=== PATIENT | male | born 1980 | race African-American/Black ===

== ENCOUNTER 2017-02-23 19:34 | Emergency (ER) | payer MEDICAID ==
[~2017-02-23] VITALS: Ht 182.9 cm; Wt 68.0 kg
[2017-02-23] MEDS ORDERED: NKM (19:45)
[2017-02-23 19:50] VITALS: BP 109/73
[2017-02-23] MEDS ORDERED: Ketorolac 60mg Inj IM ONE (20:00)
--- NOTE | 2017-02-23 20:06 | Emergency Room Report ---
History of Present Illness General Chief Complaint: Lower Back Pain or Injury Source: Patient Present Illness HPI 36-year-old male presents emergency department complaining of 7/10 in severity localized low back pain on the right side in addition to left-sided upper back pain for almost 2 weeks status post kick boxing. Patient states his pain does not radiate, he denies midline spinal pain. Patient states he has taken Motrin on 2 separate occasions but he continues to have pain. Patient denies appreciable trauma or fall patient states pain is exacerbated upon twisting of the trunk. Denies nausea, vomiting, fevers, chills, recent spinal procedures, history of neoplastic disease, or changes in weight. Denies dysuria or hematuria. Denies numbness tingling or loss of sensation or gross motor movements of the extremities, incontinence of bowel or bladder. Denies CP, Palpitations, LOC, AMS, dizziness, Changes in Vision, Sensation, paresthesias, or a sudden severe headache. Allergies: Coded Allergies: No Known Allergies (Unverified , 02/23/17) Patient History Past Medical History: see triage record Past Surgical History: none Pertinent Family History: none Immunizations: UTD Reviewed Nursing Documentation: PMH: Agreed, PSxH: Agreed Nursing Documentation-PMH Past Medical History: No Stated History Review of Systems All Other Systems: negative except mentioned in HPI Physical Exam Vital Signs Date Time Temp Pulse Resp B/P Pulse Ox O2 Delivery O2 Flow Rate FiO2 02/23/17 19:41 98.2 59 16 109/73 98 Room Air Sp02 EP Interpretation: reviewed, normal General Appearance: no apparent distress, alert, GCS 15, non-toxic Head: normocephalic, atraumatic Eyes: bilateral eye PERRL, bilateral eye normal inspection ENT: hearing grossly normal, normal pharynx, no angioedema, normal voice Neck: full range of motion, supple/symm/no masses Respiratory: lungs clear, normal breath sounds, speaking full sentences Cardiovascular #1: regular rate, rhythm, no edema Genitourinary: no CVA tenderness Musculoskeletal: back normal, gait/station normal, normal range of motion, tender - right lumbar paraspinal TTP in the lumbar region, and left paraspinal thoracic ttp, no midline TTP, no obvious deformities, no erythema Neurologic: alert, oriented x3, responsive, motor strength/tone normal, sensory intact, speech normal Psychiatric: judgement/insight normal, memory normal, mood/affect normal Skin: normal color, no rash, warm/dry, well hydrated Medical Decision Making PA Attestation Dr. Jarrell is my supervising Physician whom patient management has been discussed with. Diagnostic Impression: Primary Impression: Muscle strain Additional Impression: Back pain Qualified Codes: M54.5 - Low back pain ER Course 36-year-old male presents emergency department complaining of 7/10 in severity localized low back pain on the right side in addition to left-sided upper back pain for almost 2 weeks status post kick boxing. Patient states his pain does not radiate, he denies midline spinal pain. Patient states he has taken Motrin on 2 separate occasions but he continues to have pain. Patient denies appreciable trauma or fall patient states pain is exacerbated upon twisting of the trunk. Denies nausea, vomiting, fevers, chills, recent spinal procedures, history of neoplastic disease, or changes in weight. Denies dysuria or hematuria. Denies numbness tingling or loss of sensation or gross motor movements of the extremities, incontinence of bowel or bladder. Denies CP, Palpitations, LOC, AMS, dizziness, Changes in Vision, Sensation, paresthesias, or a sudden severe headache. Ddx considered but are not limited to Fracture, dislocation, contusion, renal calculi, epidural abscess, Sprain/Strain/Spasm Vital signs: are WNL, pt. is afebrile H&PE are most consistent with muscle strain/ spasm of the back. - no obvious deformity or bony tenderness. Pain is reproduced upon palpation of the paraspinal musculature, renal stone is not suspected at this time. No evidence of infection or cauda equina. ORDERS: none required at this time. x-rays -Not indicated as patient does not have any bony tenderness on physical exam. ED INTERVENTIONS: -350mg Soma PO. - Toradol IM I do not suspect an emergent condition at this time. with current presentation pt. is stable for close outpatient follow up. DISCHARGE: At this time pt. is stable for d/c to home. Will provide printed patient care instructions, and any necessary prescriptions. Care plan and follow up instructions have been discussed with the patient prior to discharge. Last Vital Signs Date Time Temp Pulse Resp B/P Pulse Ox O2 Delivery O2 Flow Rate FiO2 02/23/17 19:41 98.2 59 16 109/73 98 Room Air Disposition: HOME, SELF-CARE Condition: Stable Scripts Ibuprofen* (MOTRIN*) 600 Mg Tablet 600 MG ORAL THREE TIMES A DAY, #30 TAB 0 Refills Prov: Elda Dumont 02/23/17 Cyclobenzaprine Hcl* (FLEXERIL*) 10 Mg Tablet 10 MG ORAL THREE TIMES A DAY for 7 Days, #21 TAB Prov: Elda Dumont 02/23/17 Patient Instructions: Lumbosacral Strain, Back Pain, Adult Additional Instructions: Take medications as directed. Follow up with PCP in 3-5 days Return sooner to ED if new symptoms occur, or current symptoms become worse. Do not drink alcohol, drive, or operate heavy machinery while taking muscle relaxers as this may cause drowsiness. - Please note that this Emergency Department Report was dictated using [employer] teacher technology software, occasionally this can lead to erroneous entry secondary to interpretation by the dictation equipment. Elda Dumont February 23, 2017 20:06
[2017-02-23] MEDS ORDERED: IBUPROFEN600 MG ORAL (20:07)
[2017-02-23] MEDS ORDERED: CYCLOBENZAPRINE10 MG ORAL (20:07)
[2017-02-23 20:15] VITALS: BP 109/73
== END 2017-02-23 20:15 | disposition home or self-care (01) ==
LOC: EMR 20:05
DX: M54.5 Low back pain (principal); T14.8 Other injury of unspecified body region; X58.XXXA Exposure to other specified factors, initial encounter; Y93.71 Activity, boxing; Y92.9 Unspecified place or not applicable
CPT/HCPCS: 96372; 99284

== ENCOUNTER 2020-02-20 16:19 | Emergency (ER) | payer MEDICAID ==
[~2020-02-20] VITALS: Ht 182.9 cm; Wt 68.0 kg
[~2020-02-20 16:19] MED LIST: CYCLOBENZAPRINE10 MG ORAL; IBUPROFEN600 MG ORAL; NKM
[2020-02-20 16:37] VITALS: BP 126/87
[2020-02-20] MEDS ORDERED: Ketorolac 30mg Inj IM ONE (16:45)
--- NOTE | 2020-02-20 17:29 | Emergency Room Report ---
History of Present Illness General Chief Complaint: Lower Extremity Injury Source: Patient Present Illness HPI 39-year-old male with no symptom past medical history here complaining of right knee pain after twisting injury that occurred while playing basketball yesterday. Obvious deformity of right patella noted. Patient rates the pain 10 out of 10 without radiation. Denies tingling numbness. Has limited flexion and extension. Neurovascularly intact. Denies all other injuries. Has taken Advil for pain with minimal relief. Denies any chest pain, shortness of breath , headache and dizziness. 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 Patient History Past Medical History: see triage record Past Surgical History: none Pertinent Family History: none Immunizations: UTD Reviewed Nursing Documentation: PMH: Agreed; PSxH: Agreed Nursing Documentation-PMH Past Medical History: No Stated History Review of Systems All Other Systems: negative except mentioned in HPI Physical Exam Vital Signs Date Time Temp Pulse Resp B/P (MAP) Pulse Ox O2 Delivery O2 Flow Rate FiO2 02/20/20 16:37 98.6 98 15 112/68 (83) 98 Room Air Sp02 EP Interpretation: reviewed, normal General Appearance: no apparent distress, alert, GCS 15, non-toxic Head: normocephalic, atraumatic Eyes: bilateral eye normal inspection, bilateral eye PERRL ENT: hearing grossly normal, normal pharynx, no angioedema, normal voice Neck: full range of motion, supple/symm/no masses Respiratory: chest non-tender, lungs clear, normal breath sounds, no rhonchi, no wheezing, speaking full sentences Cardiovascular #1: regular rate, rhythm, no edema, no murmur Cardiovascular #2: 2+ dorsalis pedis (R), 2+ dorsalis pedis (L) Gastrointestinal: normal bowel sounds, non tender, soft, non-distended, no guarding, no rebound Genitourinary: no CVA tenderness Musculoskeletal: back normal, no calf tenderness, pelvis stable, tender - right patella, other - deformity of right patella Neurologic: alert, motor strength/tone normal, oriented x3, sensory intact, responsive, speech normal Psychiatric: judgement/insight normal, memory normal, mood/affect normal, no suicidal/homicidal ideation Skin: no rash Lymphatic: no adenopathy Procedures Splinting Splinting : Consent: Verbal Location: right knee Pre-Made Type: knee immobilizer Pre-Proc Neuro Vasc Exam: normal Post-Proc Neuro Vasc Exam: normal Patient Tolerated: Well Complications: None Medical Decision Making PA Attestation Diagnosis and treatment plans were reviewed and discussed with my supervising physician Dr. Joe Diagnostic Impression: Primary Impression: Patellar fracture ER Course 39-year-old male with no symptom past medical history here complaining of right knee pain after twisting injury that occurred while playing basketball yesterday. Obvious deformity of right patella noted. Patient rates the pain 10 out of 10 without radiation. Denies tingling numbness. Has limited flexion and extension. Neurovascularly intact. Denies all other injuries. Has taken Advil for pain with minimal relief. Denies any chest pain, shortness of breath , headache and dizziness. Ddx considered but are not limited to: Knee sprain, strain, fracture, contusion , meniscus tear injury Vital signs: are WNL, pt. is afebrile H&PE are most consistent with: Right patella fracture ORDERS: Knee x-ray, right lower extremity venous duplex ultrasound, Tylenol 3, ibuprofen ER intervention: Toradol, knee immobilizer was applied and crutches were provided DISCHARGE: At this time pt. is stable for d/c to home. Will provide printed patient care instructions, and any necessary prescriptions. Care plan and follow up instructions have been discussed with the patient prior to discharge. 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 Interpretation: other - patellar fx Impression: Other - patellar fx Electronically Signed by: Topher White PA-C CT/MRI/US Diagnostic Results CT/MRI/US Diagnostic Results : Imaging Test Ordered: right LE venous duplex US Impression no DVT Last Vital Signs Date Time Temp Pulse Resp B/P (MAP) Pulse Ox O2 Delivery O2 Flow Rate FiO2 02/20/20 16:37 89 19 Room Air 02/20/20 16:37 98.0 126/87 100 Disposition: HOME, SELF-CARE Condition: Stable Scripts Ibuprofen (Ibu) 800 Mg Tablet 800 MG PO TID, #30 TAB Prov: Topher Obando 02/20/20 Acetaminophen With Codeine (T#3) (TYLENOL #3 TAB*) Y Tab 1 TAB ORAL Q8HR PRN for For Pain for 3 Days, #10 TAB Prov: Topher Obando 02/20/20 Referrals: [facility]ERR[facility] (PCP) Patient Instructions: Patellar Fracture, Adult Additional Instructions: Take medication as directed, 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
[2020-02-20] MEDS ORDERED: ACETAMINOPHEN-1 EAC1 ORAL (17:32)
[2020-02-20] MEDS ORDERED: IBU800 MG PO (17:32)
[2020-02-20 17:45] VITALS: BP 126/87
--- NOTE | 2020-02-21 10:42 | Diagnostic Imaging Report ---
Indication: Right leg pain Technique: Grayscale and duplex images of the right lower extremity veins Comparison: None Findings: On the right, grayscale and duplex images demonstrate no evidence of intraluminal thrombus. Normal phasic Doppler waveforms, demonstrating normal augmentation response and no evidence of valvular insufficiency. Greater saphenous vein(s) and tibial veins are patent. Normal compressibility. Impression: Negative for evidence of lower extremity deep venous thrombosis on the right
--- NOTE | 2020-02-21 14:32 | Diagnostic Imaging Report ---
Indication: Pain, trauma Technique: 4 views of the ] knee Comparison: None Findings: The patella is abnormal in appearance, with 3 large ossific densities at the upper outer quadrant and multiple smaller ossific densities. There is questionably a suprapatellar effusion. There is a lucency paralleling the medial tibial plateau lucency through the medial tibial plateau. No other evidence of fracture. No dislocation Impression: Unusual appearance to the patella. Location characteristic of a multipartite patella, although the presence of smaller ossific densities is unusual for this entity, the possibility that this represents a patellar fracture should also be considered. Correlate with clinical findings Apparent parallel lucency through the medial tibial plateau. Suspect artifactual but the possibility that this represents an osteochondral fracture should also be considered. Suspect small joint effusion This essentially agrees with the preliminary interpretation reported by the emergency room physician in the electronic medical record
== END 2020-02-20 17:46 | disposition home or self-care (01) ==
LOC: EMR 16:35
DX: S82.001A Unspecified fracture of right patella, initial encounter for closed fracture (principal); M25.461 Effusion, right knee; X50.1XXA Overexertion from prolonged static or awkward postures, initial encounter; Y93.67 Activity, basketball; Y92.9 Unspecified place or not applicable
CPT/HCPCS: 29505; 73564; 93971; 96372; J1885; Z7502; 99284